=== PATIENT | male | born 1985 | race African-American/Black ===

== ENCOUNTER 2016-10-14 14:58 | Emergency (ER) | payer BC ==
[~2016-10-14] VITALS: Ht 180.3 cm; Wt 81.7 kg
[~2016-10-14 14:58] MED LIST: NORCO 5-325 TA1 EACH PO
[2016-10-14] MEDS ORDERED: FLONASE 0.05%50 MCG NASAL (15:26)
[2016-10-14 15:51] VITALS: BP 118/75
== END 2016-10-14 15:51 | disposition home or self-care (01) ==
LOC: ER 14:58
DX: J30.9 Allergic rhinitis, unspecified (principal); F17.210 Nicotine dependence, cigarettes, uncomplicated; F12.10 Cannabis abuse, uncomplicated